=== PATIENT | female | born 1940 | race Caucasian/White ===

== ENCOUNTER → 2016-12-08 | Outpatient (CLI) | payer MEDICARE ==
[~2016-12-08] MED LIST: ASPIRIN 81MG TA81 MG PO; CLOPIDOGREL75 M2 PO; LEVOTHYROXINE0.05 M2 PO; LISINOPRIL10 MG PO; METFORMIN 500M500 M1 PO; METOPROLOL50 MG PO; OMEPRAZOLE20 MG PO; RANITIDINE HCL150 MG PO; SIMVASTATIN80 MG PO
--- NOTE | 2016-12-08 20:43 | RADIOLOGY REPORT PS360 ---
LUMBAR SPINE 5 VIEWS ORDERING PHYSICIAN : Kyle Collins MD PATIENT AGE: 76 years GENDER: Female INDICATION: ACUTE RT SIDED LOW BACK PAIN TECHNIQUE: 5 view lumbar spine series COMPARISON: None available FINDINGS The vertebral bodies are intact with no compression fractures nor lesions. Moderate/most evident disc space space narrowing with vacuum phenomenon is seen at L4/5.. Mild disc space narrowing L3/4.. Mild levocurvature at lower L-spine on frontal view. Pedicles and SI joints intact. Mild degenerative facet changes throughout spine. Aorta Mildly dilated.. It measures nearly 3 lcm diameter on plain film which includes 20- 25 % magnification. May benefit from ultrasound aorta follow-up in 6-12 months for ongoing aorta sl surveillance ey. IMPRESSION: : Degenerative disc changes at L4/5 followed by L3/4 Mild levoscoliosis. Aortic dilatation. 3 cm dilatation diffusely calcified abdominal aorta. Suggest follow-up ultrasound aorta within 6-12 months (if MRIs performed aorta could be further evaluated by this modality as well)
== END ==
LOC: RAD 15:21
DX: M54.5 Low back pain (principal)

== ENCOUNTER → 2017-07-20 | Outpatient (CLI) | payer MEDICARE ==
[2017-07-20 10:06] LABS: LYMPH # 1.4 K/mm3 (0.7-4.5); LYMPH % 18.9 % (10-50.0)
[2017-07-20 10:09] LABS: HEMOGLOBIN 13.6 g/dL (12.2-16.2)
[2017-07-20 10:24] LABS: BUN 11 mg/dL (7-18)
[2017-07-20 10:26] LABS: GFR (ESTIMATED) 48 ML/MIN (59-)
--- NOTE | 2017-07-20 11:12 | RADIOLOGY REPORT PS360 ---
CT HEAD-W/WO CONTRAST INDICATION: ACUTE NONINTRACTIBLE HEADACHE,FRONTAL SINUSITIS ORDERING PHYSICIAN: Kyle Collins MD PATIENT AGE: 76 years COMPARISON: None TECHNIQUE: Axial images are obtained without and with contrast FINDINGS: No midline shift, mass effect, intracranial hemorrhage, or hydrocephalus evident. No intra or extra-axial masses. No enhancing lesions. Nonspecific hypoattenuation noted in the periventricular white matter consistent with ischemic gliotic change from microvascular disease. Intracranial arterial vascular calcification noted. Unremarkable calvarium. There is mild mucosal thickening of the ethmoid sinuses. No mastoid effusion. IMPRESSION: No acute intracranial findings. Mild ethmoid sinus disease
== END ==
LOC: RAD 09:26
PROVIDERS: Internal Medicine Adolescent Medicine
DX: R51 Headache (principal); R53.83 Other fatigue; J01.10 Acute frontal sinusitis, unspecified

== ENCOUNTER → 2017-09-22 | Outpatient (CLI) | payer MEDICARE ==
--- NOTE | 2017-09-22 09:47 | CARDIOVASCULAR REPORT ---
"Cerebrovascular Exam Indications: 785.9 Bruit. IMPRESSIONS 1. The bilateral vertebral arteries are patent with normal antegrade flow. 2. Study suggests 20-49% stenosis involving the right internal carotid artery and the left internal carotid artery. Plaque seen throughout both common carotid arteries History: Coronary artery disease. Risk factors: Hypertension. Hyperlipidemia. Carotid duplex study. Complete study and Doppler flow study including spectral analysis, color and foss scale imaging. Height: Height: 162.6cm. Height: 64in. Weight: Weight: 99.8kg. Weight: 219.5lb. Body mass index: BMI: 37.8kg/m^2. Body surface area: BSA: 2.17m^2. Location: Vascular laboratory. Patient status: Outpatient. Tables: Arterial flow: + +--------+--------+ |Location |V sys |V ed | + +--------+--------+ |Right CCA - proximal|50.3cm/s|14.9cm/s| + +--------+--------+ |Right CCA - distal |37.7cm/s|13.4cm/s| + +--------+--------+ |Right ECA |84.1cm/s|--------| + +--------+--------+ |Right ICA - proximal|84.1cm/s|31.4cm/s| + +--------+--------+ |Right ICA - mid |101cm/s |30.6cm/s| + +--------+--------+ |Right ICA - distal |69.9cm/s|29.1cm/s| + +--------+--------+ |Right vertebral |55cm/s |--------| + +--------+--------+ |Left CCA - proximal |51.9cm/s|13.4cm/s| + +--------+--------+ |Left CCA - distal |95.1cm/s|24.4cm/s| + +--------+--------+ |Left ECA |73.9cm/s|--------| + +--------+--------+ |Left ICA - proximal |86.4cm/s|29.9cm/s| + +--------+--------+ |Left ICA - mid |83.3cm/s|27.5cm/s| + +--------+--------+ |Left ICA - distal |80.4cm/s|30.6cm/s| + +--------+--------+ |Left vertebral |32.5cm/s|--------| + +--------+--------+ Velocity ratios: + + + + + + | |Right, V sys|Right, V ed|Left, V sys|Left, V ed| + + + + + + |Max ICA/dist CCA|2.68 |2.34 |0.91 |1.25 | + + + + + + (Report amended ) Electronically signed by: Tavo Rivera [id number]"
--- NOTE | 2017-09-22 22:19 | RADIOLOGY REPORT PS360 ---
PROCEDURE: 2-D M-mode and color Doppler study INDICATIONS FOR THE TEST: Chest pain COPD Heart Murmur Tobacco SmokingEX Palpitations Fatigue Syncope EdemaX HypertensionXDiabetes Mellitus Rheumatic Fever SOBXDOEXObesityXHyperlipidemiaX Family History HD Additional History CAD,AF PLEURAL AND PERICARDIAL EFFUSIONS NOTED PATIENT INFORMATION HEIGHT: 64 WEIGHT:220 GENDER: Female B/P:120/80 2-D/M-MODE INTERPRETATION: 2-D MEASUREMENTS OBSERVED VALUES IN CMS Right Ventricular Dimension (RVDd) 3.2 Interventricular Septum (Thickness)(IVsd) 1.2 Left Ventricular Internal Dimensions(LVIDd) 4.0 Left Ventricular Posterior Wall (Thickness)(LVPWd) 1.2 Aortic Root 3.0 Aortic Cusp Separation 1.1 Left Atrial Dimensions (LAD) 4.2 2D 1. Left atrium is mildly enlarged, left ventricle is normal size, there is mild concentric left ventricular hypertrophy, visually estimated ejection fraction 55% with no obvious regional wall motion abnormality. 2. The right atrium is mildly enlarged, right ventricle is mildly dilated with normal contractility. 3. The aortic valve is thickened and calcified. 4. The mitral valve has mitral annular calcification, leaflets are minimally thickened. 5. The tricuspid valve is grossly normal. 6. The pulmonic valve is poorly visualized. 7. There is small to moderate-sized pericardial effusion noted DOPPLER INTERROGATION: Doppler interrogation of the aortic, mitral and tricuspid valvular presence of trace aortic, mild mitral and tricuspid regurgitation, calculated right ventricular systolic pressure is 57 mmHg consistent with the moderate pulmonary hypertension. Diastolic parameters are inconclusive. CONCLUSION: 1. Biatrial enlargement, normal left ventricular size, mild concentric left ventricular hypertrophy, visually estimated ejection fraction 55% with no obvious regional wall motion abnormality. Diastolic parameters are inconclusive. 2. Mildly enlarged right ventricle with normal contractility. 3. Thickened and calcified aortic valve without aortic stenosis, there is trace aortic insufficiency. 4. Mild mitral and tricuspid regurgitation 5. Small to moderate-sized pericardial effusion noted without Doppler ECHOCARDIOGRAPHIC evidence of raised intrapericardial pressure or tamponade.
== END ==
LOC: RT 08:32
DX: R60.9 Edema, unspecified (principal); R06.89 Other abnormalities of breathing; R55 Syncope and collapse; R27.0 Ataxia, unspecified; I48.0 Paroxysmal atrial fibrillation